=== PATIENT | male | born 1995 | race Caucasian/White ===

== ENCOUNTER → 2023-04-26 | Emergency (ER) | payer OTHER ==
[2023-04-26 10:42] VITALS: BP 128/74; PULSE 62; RESP 18; TEMP 99; BMI 29.9
== END | disposition left against medical advice (07) ==
LOC: JERFT 10:35
DX: K04.7 Periapical abscess without sinus (principal); K02.9 Dental caries, unspecified
CPT/HCPCS: 99281-25